=== PATIENT | female | born 1985 | race African-American/Black ===

== ENCOUNTER 2021-01-09 07:59 | Outpatient (CLI) | payer BC ==
[2021-01-09 18:57] LABS: SARS-CoV-2 PCR by NAA Not Detected (NotDetected)
== END 2021-01-09 08:00 | disposition home or self-care (01) ==
LOC: CSHLAB 07:59
PROVIDERS: ATTEND Student in an Organized Health Care Education/Training Program
DX: Z20.822 Contact with and (suspected) exposure to COVID-19 (principal)
CPT/HCPCS: 87635; U0003; U0005

== ENCOUNTER 2021-01-11 05:37 | Inpatient (IN) | payer BC ==
[2021-01-11] MEDS ORDERED: Ondansetron PF 4 MG/2 ML Vial IVP PRN ×2 (05:55→10:39)
[2021-01-11] MEDS ORDERED: Bicitra 30 ML UDCUP PO PRN (05:55)
[2021-01-11] MEDS ORDERED: hydrALAZINE 20 MG/ML VIAL SLOW IVP PRN ×2 (05:55→10:39)
[2021-01-11] MEDS ORDERED: Famotidine/PF 20 mg/2ml Vial SLOW IVP PRN (05:55)
[2021-01-11] MEDS ORDERED: Promethazine HCl 25 MG/ML VIAL IM PRN ×2 (05:55→10:39)
[2021-01-11] MEDS ORDERED: Lactated Ringer's 1,000 ML IV SCH (06:00)
[2021-01-11] MEDS ORDERED: Clindamycin/D5W 900 MG in Premix Bag 1 BAG IVPB SCH (06:00)
[2021-01-11 06:01] VITALS: BMI 40.4
[2021-01-11] MEDS ORDERED: Gentamicin Sulfate 120 MG in Premix Bag 1 BAG IVPB SCH (06:30)
[2021-01-11 06:33] LABS: Hemoglobin 11.6 g/dL (12.0-15.5); Mean Corpuscular HGB CONC 32.4 g/dL (32.0-36.0); Mean Corpuscular Hemoglobin 28.4 pg (27.0-33.0); Mean Corpuscular Volume 87.5 fl (81.6-98.3); Mean Platelet Volume 10.1 fl (7.4-10.4); Platelet Count 249 10x3/uL (150-450); RBC Distribution Width 15.3 % (11.5-14.5); Red Blood Cell (RBC) Count 4.09 10x6/uL (3.90-5.03); White Blood Cell (WBC) Count 8.2 10x3/uL (3.5-10.5)
[2021-01-11] MEDS ORDERED: GENTAMICIN IVPB SCH (06:45)
[2021-01-11] MEDS ORDERED: ADMIXTURE FEE IVPB SCH (06:45)
[2021-01-11] MEDS ORDERED: SODIUM CHLORIDE IVPB SCH (06:45)
[2021-01-11] MEDS ORDERED: Sodium Chloride 0.9% 100 ML ONE (07:03)
[2021-01-11] MEDS ORDERED: Gentamicin 80 MG/2 ML VIAL ONE (07:03)
[2021-01-11 07:25] LABS: Syphilis Antibody Nonreactive (Nonreactive); Syphilis Antibody Index 0.04 S/CO (<1.00 Non-Reactive)
[2021-01-11 07:26] LABS: Hep B Surf Ag Non-Reactive S/CO (NonReactive)
[2021-01-11 07:31] LABS: HBSAg Index 0.17 S/CO (0-0.99)
[2021-01-11] MEDS ORDERED: Morphine PF 10 MG/10 ML VIAL ONE (07:32)
[2021-01-11] MEDS ORDERED: PHENYLEPHRINE-NS 100 MCG/ML 10 ML SYRINGE ONE (07:33)
[2021-01-11] MEDS ORDERED: Oxytocin 10 UNITS/ML VIAL ONE (07:33)
[2021-01-11] MEDS ORDERED: NS w/ Oxytocin 30 units 500 ML ONE (09:04)
[2021-01-11] MEDS ORDERED: HYDROcodone/Acetaminophen 5/325 mg Tablet PO PRN ×2 (10:39)
[2021-01-11] MEDS ORDERED: Lanolin Ointment 7 GM TUBE TOP PRN (10:39)
[2021-01-11] MEDS ORDERED: Bisacodyl 10 MG SUPP PR PRN (10:39)
[2021-01-11] MEDS ORDERED: Zolpidem Tartrate 5 MG TAB PO PRN (10:39)
[2021-01-11] MEDS ORDERED: diphenhydrAMINE 25 MG CAP PO PRN (10:39)
[2021-01-11] MEDS ORDERED: Adacel (T-DAP) 0.5 ML SYRINGE IM ONE (10:39)
[2021-01-11] MEDS ORDERED: Prenatal Vitamin 1 TAB PO SCH (11:00)
[2021-01-11] MEDS ORDERED: Ferrous Sulfate 325 MG TAB PO SCH (11:00)
[2021-01-11] MEDS ORDERED: Docusate Calcium (SURFAK) 240 MG CAP PO SCH (11:00)
[2021-01-11] MEDS ORDERED: diphenhydrAMINE 50 MG/ML VIAL IVP SCH (12:00)
[2021-01-11] MEDS: Ibuprofen 800 MG TAB PO SCH ×2 (14:36→21:58)
[2021-01-11] MEDS: Simethicone Chewable 80 MG TAB PO PRN (20:40)
[2021-01-11] MEDS: Docusate Calcium (SURFAK) 240 MG CAP PO SCH (21:58)
[2021-01-12] MEDS: Ferrous Sulfate 325 MG TAB PO SCH ×3 (01:39→19:34)
[2021-01-12] MEDS: Ibuprofen 800 MG TAB PO SCH ×3 (05:17→21:24)
[2021-01-12 06:10] LABS: Red Blood Cell (RBC) Count 3.65 10x6/uL (3.90-5.03); White Blood Cell (WBC) Count 9.6 10x3/uL (3.5-10.5)
[2021-01-12 06:11] LABS: Mean Corpuscular HGB CONC 32.2 g/dL (32.0-36.0); Mean Corpuscular Hemoglobin 28.5 pg (27.0-33.0); Mean Corpuscular Volume 88.5 fl (81.6-98.3); Mean Platelet Volume 9.9 fl (7.4-10.4); Platelet Count 210 10x3/uL (150-450); RBC Distribution Width 15.5 % (11.5-14.5)
[2021-01-12 06:12] LABS: Hemoglobin 10.4 g/dL (12.0-15.5)
[2021-01-12] MEDS: Docusate Calcium (SURFAK) 240 MG CAP PO SCH ×2 (09:08→21:25)
[2021-01-12] MEDS: Acetaminophen 325 MG TAB PO PRN ×3 (09:08→23:05)
[2021-01-12] MEDS: Prenatal Vitamin 1 TAB PO SCH (09:08)
[2021-01-12] MEDS: Simethicone Chewable 80 MG TAB PO PRN (09:08)
[2021-01-13] MEDS: Ibuprofen 800 MG TAB PO SCH (05:40)
[2021-01-13 08:12] VITALS: BP 122/73; TEMP 98.7
[2021-01-13] MEDS: Prenatal Vitamin 1 TAB PO SCH (08:28)
[2021-01-13] MEDS: Docusate Calcium (SURFAK) 240 MG CAP PO SCH (08:28)
[2021-01-13] MEDS: Ferrous Sulfate 325 MG TAB PO SCH (08:29)
== END 2021-01-13 12:20 | disposition home or self-care (01) | DRG 788 ==
LOC: CSHLD 05:37 → CSHPP 10:26
PROVIDERS: ADMIT Student in an Organized Health Care Education/Training Program; ATTEND Student in an Organized Health Care Education/Training Program
PROC: 10D00Z1 Extraction of Products of Conception, Low, Open Approach (ICD-10-PCS; principal; 2021-01-11)
DX: O34.211 Maternal care for low transverse scar from previous cesarean delivery (principal); Z20.822 Contact with and (suspected) exposure to COVID-19; Z3A.39 39 weeks gestation of pregnancy; Z37.0 Single live birth; Z88.8 Allergy status to other drugs, medicaments and biological substances; Z88.1 Allergy status to other antibiotic agents; Z91.040 Latex allergy status; Z91.010 Allergy to peanuts; Z91.041 Radiographic dye allergy status; Z91.018 Allergy to other foods; O24.420 Gestational diabetes mellitus in childbirth, diet controlled
CPT/HCPCS: 36416; 51702; 85027; 86780; 86850; 86900; 86901; 87340; 87635; J1580; J2274; J2405; J2550; J3490; U0003; U0005